=== PATIENT | female | born 1950 ===

== ENCOUNTER 2019-08-02 01:52 | Outpatient (CLI) | payer MEDICARE, SELFPAY ==
[2019-08-02 14:15] LABS: Anion Gap 10.5 mmol/L (3-11); BUN 11 mg/dL (7-18); CO2 31.5 mmol/L (21.0-32.0); CREATININE 0.72 mg/dL (0.55-1.02); Calcium 9.4 mg/dL (8.5-10.1); Chloride 103 mmol/L (98-107); Glucose 124 mg/dL (74-106); Potassium 3.8 mmol/L (3.5-5.1); Sodium 145 mmol/L (136-145); Uric Acid 6.9 mg/dL (2.6-6.0)
[2019-08-02 14:41] LABS: Calculated LDL 121 mg/dL; Cholesterol 229 mg/dL (<200); HDL Cholesterol 76 mg/dL (40-60); Triglyceride 163 mg/dL (<150)
== END 2019-08-02 02:12 ==
PROVIDERS: PCP Internal Medicine; Visit Provider Internal Medicine
DX: I10 Essential (primary) hypertension (principal); E78.00 Pure hypercholesterolemia, unspecified; M10.9 Gout, unspecified
CPT/HCPCS: 36415; 80048; 80061; 84550

== ENCOUNTER 2020-08-21 03:20 | Outpatient (CLI) | payer OTHER, SELFPAY ==
[2020-08-21 16:02] LABS: Calculated LDL 126 mg/dL (<100); Cholesterol 242 mg/dL (<200); Glucose 112 mg/dL (74-106); HDL Cholesterol 69 mg/dL (40-60); Triglyceride 235 mg/dL (<150)
[2020-08-21 16:56] LABS: Uric Acid 6.6 mg/dL (2.6-6.0)
== END 2020-08-21 03:40 ==
PROVIDERS: PCP Internal Medicine; Visit Provider Internal Medicine
DX: E78.00 Pure hypercholesterolemia, unspecified (principal); I10 Essential (primary) hypertension; R73.01 Impaired fasting glucose; M10.9 Gout, unspecified
CPT/HCPCS: 36415; 80061; 82947; 84550

== ENCOUNTER 2021-03-13 03:04 | Outpatient (CLI) | payer OTHER, SELFPAY ==
[2021-03-13 13:20] LABS: Anion Gap 4.7 mmol/L (3-11); BUN 14 mg/dL (7-18); CO2 34.3 mmol/L (21.0-32.0); CREATININE 0.7 mg/dL (0.55-1.02); Calcium 9.1 mg/dL (8.5-10.1); Calculated LDL 136 mg/dL (<100); Chloride 106 mmol/L (98-107); Cholesterol 232 mg/dL (<200); Glucose 92 mg/dL (74-106); HDL Cholesterol 66 mg/dL (40-60); Potassium 3.9 mmol/L (3.5-5.1); Sodium 145 mmol/L (136-145); Triglyceride 151 mg/dL (<150)
[2021-03-13 13:31] LABS: Uric Acid 4.5 mg/dL (2.6-6.0)
== END 2021-03-13 03:05 | disposition home or self-care (01) ==
LOC: LBO 03:04
PROVIDERS: PCP Internal Medicine; Visit Provider Internal Medicine
DX: I10 Essential (primary) hypertension (principal); R73.01 Impaired fasting glucose; E78.00 Pure hypercholesterolemia, unspecified; M10.9 Gout, unspecified
CPT/HCPCS: 36415; 80048; 80061; 84550